=== PATIENT | female | born 1950 | race Two or more races ===

== ENCOUNTER 2024-06-04 05:30 | Day surgery (SDC) | payer OTHER ==
[2024-06-04] MEDS ORDERED: fentaNYL CITRATE 50 MCG/ML AMPUL IV ONE (08:45)
[2024-06-04] MEDS ORDERED: ENALAPRILAT DIHYDRATE 1.25 MG/ML VIAL IV ONE (08:45)
[2024-06-04] MEDS ORDERED: DIPHENHYDRAMINE HCL 50 MG/ML VIAL 1ML IV ONE (08:45)
[2024-06-04] MEDS ORDERED: MIDAZOLAM HCL 2 MG/2 ML VIAL IV ONE (08:45)
== END 2024-06-04 10:30 | disposition home or self-care (01) ==
LOC: AMB-ENDOS 05:30 → CIR.AMB 13:15
PROVIDERS: ATTEND Surgery
DX: D12.0 Benign neoplasm of cecum (principal); K63.5 Polyp of colon; Z88.0 Allergy status to penicillin

== ENCOUNTER 2024-07-23 12:30 | Inpatient (IN) | payer OTHER ==
[~2024-07-23] VITALS: Ht 177.8 cm; Wt 88.9 kg
[2024-07-23 13:51] VITALS: BP 154/85
[2024-07-23] MEDS ORDERED: ATACAND16 MG PO (13:53)
[2024-07-31] MEDS ORDERED: LIDOCAINE HCL 1%/EPINEPHRINE 20ML VIAL IJ ONE (07:10)
[2024-07-31] MEDS ORDERED: BUPIVACAINE HCL/Mpf 0.5% 10ML VIAL ONE (07:10)
[2024-07-31] MEDS ORDERED: METRONIDAZOLE/SODIUM CHLORIDE 500 MG/100 ML PIGGYBACK IV ONE (07:40)
[2024-07-31] MEDS ORDERED: levoFLOXacin IN DEXTROSE 5 % 5 MG/ML PIGGYBAG IV ONE (07:40)
[2024-07-31] MEDS ORDERED: SUGAMMADEX SODIUM 200 MG/2 ML VIAL IV ONE (10:10)
[2024-07-31] MEDS ORDERED: MEPERIDINE HCL 25 MG/ML AMPUL IV ONE (10:50)
[2024-07-31] MEDS ORDERED: MORPHINE SULFATE 4 MG/ML VIAL IV ONE ×2 (11:35→14:05)
[2024-07-31] MEDS ORDERED: MORPHINE SULFATE 4 MG/ML CARTRIDGE IV PRN (12:15)
[2024-07-31] MEDS ORDERED: OxyCODONE HCL 5 MG TABLET (ROXICODONE) PO PRN (12:15)
[2024-07-31] MEDS ORDERED: ONDANSETRON HCL 2 MG/ML VIAL IV PRN (12:15)
[2024-07-31] MEDS ORDERED: RINGERS SOLUTION,LACTATED 1,000 ML IV SCH (12:15)
[2024-07-31] MEDS ORDERED: TAMSULOSIN HCL 0.4 MG CAP PO SCH (12:16)
[2024-07-31] MEDS ORDERED: ENALAPRILAT DIHYDRATE 1.25 MG/ML VIAL IV ONE (12:58)
[2024-07-31] MEDS ORDERED: HYOSCYAMINE SULFATE 0.125 MG TAB.SUBL SL SCH (13:00)
[2024-07-31] MEDS ORDERED: METRONIDAZOLE/SODIUM CHLORIDE 500 MG/100 ML PIGGYBACK IV SCH (17:00)
[2024-07-31] MEDS ORDERED: LACTOBACILLUS ACIDOPHILUS 1 CAP CAP PO SCH (17:00)
[2024-07-31] MEDS ORDERED: GABAPENTIN 300 MG CAPSULE PO SCH (17:00)
[2024-07-31] MEDS ORDERED: ACETAMINOPHEN 500 MG GEL..CAP PO SCH (18:00)
[2024-07-31 18:23] VITALS: BP 180/94; O2SAT 96
[2024-07-31] MEDS ORDERED: FAMOTIDINE/PF 20 MG/2 ML VIAL IV PUSH SCH (21:00)
[2024-07-31] MEDS ORDERED: CIPROFLOXACIN IN 5 % DEXTROSE 400 MG/200 ML PIGGYBAG IV SCH (21:00)
[2024-08-01 00:36] VITALS: BP 137/74; O2SAT 98
[2024-08-01 08:01] LABS: HEMATOCRIT 34.6 % (36.0-45.00); HEMOGLOBIN 11.9 g/dL (12.0-15.00); MEAN CELL VOLUME 92.7 fL (80.00-100.00); MEAN CORPUSCULAR HEMOGLOBIN 31.8 pg (27.00-32.0); MEAN CORPUSCULAR HGB CONC 34.3 g/dl (32.0-36.0); PLATELET COUNT 205 K/uL (150-450); RED BLOOD COUNT 3.73 M/uL (4.00-6.00); RED CELL DISTRIBUTION WIDTH 12.2 % (11.5-14.5)
[2024-08-01 08:24] VITALS: BP 140/68; O2SAT 94
[2024-08-01 08:40] LABS: CALCIUM 8.5 mg/dL (8.5-10.1); CREATININE SERUM 0.5 mg/dL (0.55-1.02); GFR 120.61; MAGNESIUM 1.6 mg/dL (1.8-2.4); PHOSPHOROUS 2.9 mg/dL (2.5-4.9); POTASSIUM 3.63 mEq/L (3.5-5.1)
[2024-08-01] MEDS ORDERED: CANDESARTAN CILEXETIL 16 MG TABLET PO SCH (09:00)
[2024-08-01] MEDS ORDERED: MAGNESIUM SULFATE IN WATER 4 GM/100 ML PIGGYBACK IV NR (11:00)
[2024-08-01] MEDS ORDERED: AMINO ACIDS 1 EACH TABLET PO SCH (13:00)
[2024-08-01 16:09] VITALS: BP 118/72; O2SAT 96
[2024-08-01] MEDS ORDERED: ENOXAPARIN SODIUM 40 MG/0.4 ML SYRINGE SUBCUTANEO SCH (17:00)
[2024-08-01 23:52] VITALS: BP 118/72; O2SAT 98
[2024-08-02 08:39] VITALS: BP 138/72; O2SAT 96
[2024-08-02] MEDS ORDERED: ENOXAPARIN SODIUM 40 MG/0.4 ML SYRINGE SUBCUTANEO SCH (09:00)
[2024-08-02 16:09] VITALS: BP 122/80; O2SAT 96
[2024-08-03 00:30] VITALS: BP 116/76; O2SAT 99
[2024-08-03 08:02] LABS: HEMATOCRIT 30.3 % (36.0-45.00); HEMOGLOBIN 10.5 g/dL (12.0-15.00); MEAN CELL VOLUME 92.1 fL (80.00-100.00); MEAN CORPUSCULAR HEMOGLOBIN 31.9 pg (27.00-32.0); MEAN CORPUSCULAR HGB CONC 34.6 g/dl (32.0-36.0); PLATELET COUNT 178 K/uL (150-450); RED BLOOD COUNT 3.29 M/uL (4.00-6.00); RED CELL DISTRIBUTION WIDTH 12.7 % (11.5-14.5)
[2024-08-03 09:05] VITALS: BP 140/85; O2SAT 95
[2024-08-03 09:13] LABS: CALCIUM 8.4 mg/dL (8.5-10.1); CREATININE SERUM 0.37 mg/dL (0.55-1.02); GFR 170.72; MAGNESIUM 1.8 mg/dL (1.8-2.4); POTASSIUM 3.25 mEq/L (3.5-5.1)
[2024-08-03 09:18] LABS: PHOSPHOROUS 1.9 mg/dL (2.5-4.9)
[2024-08-03] MEDS ORDERED: POTASSIUM PHOS,M-BASIC-D-BASIC 15 MM in 0.9 % SODIUM CHLORIDE 250 ML IV ONE (11:00)
[2024-08-03] MEDS ORDERED: INTESTINEX680 M1 PO (12:47)
[2024-08-03] MEDS ORDERED: CELECOXIB200 MG PO (12:47)
[2024-08-03] MEDS ORDERED: NEURONTIN300 MG PO (12:47)
== END 2024-08-03 21:01 | disposition home or self-care (01) | DRG 331 ==
LOC: O/R 07-31 05:15 → SURH 07-31 08:45 → SURG 07-31 12:16 → SURH 07-31 12:30 → SURG 08-03 21:01
PROVIDERS: Internal Medicine; ADMIT Surgery; ATTEND Surgery
PROC: 07BB4ZZ Excision of Mesenteric Lymphatic, Percutaneous Endoscopic Approach (ICD-10-PCS; 2024-07-31)
PROC: 0DNW0ZZ Release Peritoneum, Open Approach (ICD-10-PCS; 2024-07-31)
PROC: 8E0W4CZ Robotic Assisted Procedure of Trunk Region, Percutaneous Endoscopic Approach (ICD-10-PCS; 2024-07-31)
PROC: 0DTF4ZZ Resection of Right Large Intestine, Percutaneous Endoscopic Approach (ICD-10-PCS; principal; 2024-07-31 08:45)
DX: K63.5 Polyp of colon (principal); D12.0 Benign neoplasm of cecum
CPT/HCPCS: 44204; 38570; 44120; S2900